=== PATIENT | male | born 1975 | race Caucasian/White ===

== ENCOUNTER 2024-10-22 07:40 | Observation (INO) | payer BC ==
[2024-10-18 14:55] VITALS: BMI 26.2
[2024-10-22] MEDS ORDERED: Heparin 5,000 UNITS/ML VIAL ONE (08:59)
[2024-10-22] MEDS ORDERED: AFRIN NASAL MIST 15 ML BOT ONE (08:59)
[2024-10-22] MEDS ORDERED: Lidocaine 1% PF 5 ML VIAL ONE (10:11)
[2024-10-22] MEDS ORDERED: PROPOFOL 40 ML ONE (10:11)
[2024-10-22] MEDS ORDERED: SUGAMMADEX SODIUM 200 MG/2 ML VIAL ONE (10:11)
[2024-10-22] MEDS ORDERED: Rocuronium Bromide 10 MG/ML (10ML VIAL) ONE (10:11)
[2024-10-22] MEDS ORDERED: Ondansetron PF 4 MG/2 ML Vial ONE (10:11)
[2024-10-22] MEDS ORDERED: Lidocaine 1% w/Epinephrine 1:200K 30 ML VIAL ONE ×2 (10:57→11:35)
[2024-10-22] MEDS ORDERED: CEFAZOLIN 1 GM VIAL ONE (11:19)
[2024-10-22] MEDS: Maxitrol 0.1% Opth Oint 3.5 GM TUBE FS SCH (16:57)
[2024-10-22] MEDS: Hydrocodone-Acetamin 15 ML UDCUP PO PRN (18:07)
[2024-10-22] MEDS ORDERED: Acetaminophen 500 MG TAB PO PRN (20:04)
[2024-10-22] MEDS: Pantoprazole 40 MG DR.TAB PO SCH (21:26)
[2024-10-22] MEDS: Oxymetazoline HCl 0.05% (15 ML) NASAL PRN (21:26)
[2024-10-22] MEDS: diphenhydrAMINE 50 MG/ML VIAL IVP SCH (21:26)
[2024-10-22] MEDS: Naproxen 500 MG TAB PO SCH (21:30)
[2024-10-22] MEDS: Sodium Chloride 0.65% Nasal 44 ML BOT EA NARE SCH (21:31)
[2024-10-23 08:54] VITALS: BP 142/89; TEMP 97.9
[2024-10-23] MEDS: Rosuvastatin 10 MG TAB PO SCH (08:57)
[2024-10-23] MEDS: BuPROPion XL 150 MG ER.TAB PO SCH (08:57)
[2024-10-23] MEDS: Losartan 50 MG TAB PO SCH (08:57)
[2024-10-23] MEDS: Metoprolol Succinate XL 50 MG ER.TAB PO SCH (08:58)
== END 2024-10-23 10:29 | disposition home or self-care (01) ==
LOC: CSHSDC 07:40 → CSHTELE 16:49
PROVIDERS: ADMIT Otolaryngology Otolaryngic Allergy; ATTEND Otolaryngology Otolaryngic Allergy
PROC: 09SM0ZZ Reposition Nasal Septum, Open Approach (ICD-10-PCS; principal; 2024-10-22)
PROC: 09SL0ZZ Reposition Nasal Turbinate, Open Approach (ICD-10-PCS; 2024-10-22)
PROC: 0CBNXZZ Excision of Uvula, External Approach (ICD-10-PCS; 2024-10-22)
DX: J34.2 Deviated nasal septum (principal); J34.3 Hypertrophy of nasal turbinates; K13.79 Other lesions of oral mucosa; G47.33 Obstructive sleep apnea (adult) (pediatric); I10 Essential (primary) hypertension; Z88.0 Allergy status to penicillin
CPT/HCPCS: 88302; 93005; 93010; 94760; J0690; J1100; J1200; J1644; J2250; J2405; J2704; J3010